=== PATIENT | female | born 1970 | race Two or more races ===

== ENCOUNTER 2018-02-23 15:51 | Emergency (ER) | payer MEDICAID ==
[~2018-02-23] VITALS: Ht 149.9 cm; Wt 63.0 kg
[~2018-02-23 15:51] MED LIST: AMLODIPINE BES2.5 MG ORAL; CIPROFLOXACIN500 M2 ORAL; IBUPROFEN600 MG ORAL; NAPROSYN500 M1 ORAL; NORCO 5-325 TA1 EACH ORAL
[2018-02-23] MEDS ORDERED: HYDROcodone/Acetamin 7.5/325 tab ORAL ONE (16:15)
--- NOTE | 2018-02-23 16:34 | Diagnostic Imaging Report ---
Indication: Foot pain Technique: 3 views right foot Comparison: none Findings: There is mild hallux valgus and metatarsus adductus. No acute fractures. No dislocations. Joint spaces are preserved. There are small plantar and calcaneal spurs Impression: Findings as noted. No acute process
--- NOTE | 2018-02-23 16:50 | Emergency Room Report ---
History of Present Illness General Chief Complaint: Lower Extremity Injury Source: Patient Present Illness HPI 47-year-old female presents to the emergency department complaining of 8 out of 10 in severity right great toe pain 3 days. Patient reports that 3 days ago she stubbed her toe on a door, and she has had pain ever since. Patient thought her pain would subside however it hasn't she has moderate tenderness to the distal aspect of the toe. She also reports that she has pain with movement of the right great toe. Pain is exacerbated upon walking or standing. Denies numbness tingling or loss of sensation or gross motor movements of the extremities, incontinence of bowel or bladder. Denies CP, Palpitations, LOC, AMS , dizziness, Changes in Vision, Sensation, paresthesias, or a sudden severe headache. Allergies: Coded Allergies: No Known Allergies (Unverified , 04/02/15) Patient History Past Medical History: see triage record Past Surgical History: none Pertinent Family History: none Now: No Reviewed Nursing Documentation: PMH: Agreed; PSxH: Agreed Nursing Documentation-PMH Past Medical History: No History, Except For Hx Hypertension: Yes Review of Systems All Other Systems: negative except mentioned in HPI Physical Exam Vital Signs Date Time Temp Pulse Resp B/P (MAP) Pulse Ox O2 Delivery O2 Flow Rate FiO2 02/23/18 15:53 98.3 69 18 150/95 95 Room Air 98.2 Sp02 EP Interpretation: reviewed, normal General Appearance: no apparent distress, alert, GCS 15, non-toxic Head: normocephalic, atraumatic Eyes: bilateral eye normal inspection, bilateral eye PERRL ENT: hearing grossly normal, normal voice Neck: full range of motion Respiratory: lungs clear, normal breath sounds, speaking full sentences Cardiovascular #1: regular rate, rhythm, normal capillary refill Musculoskeletal: back normal, gait/station normal, normal range of motion, tender - distal Right great toe, some ttp to the toenail, no obvious avulsion, no swelling or bruising. Neurologic: alert, oriented x3, responsive, motor strength/tone normal, sensory intact, normal gait, speech normal, grossly normal Psychiatric: judgement/insight normal Skin: normal color, no rash, warm/dry, well hydrated Medical Decision Making PA Attestation Dr. Dooley is my supervising Physician whom patient management has been discussed with. Diagnostic Impression: Primary Impression: Toe contusion Qualified Codes: S90.111A - Contusion of right great toe without damage to nail, initial encounter Additional Impressions: Foot pain, right Toe sprain Qualified Codes: S93.509A - Unspecified sprain of unspecified toe(s), initial encounter ER Course 47-year-old female presents to the emergency department complaining of 8 out of 10 in severity right great toe pain 3 days. Patient reports that 3 days ago she stubbed her toe on a door, and she has had pain ever since. Patient thought her pain would subside however it hasn't she has moderate tenderness to the distal aspect of the toe. She also reports that she has pain with movement of the right great toe. Pain is exacerbated upon walking or standing. Denies numbness tingling or loss of sensation or gross motor movements of the extremities, incontinence of bowel or bladder. Denies CP, Palpitations, LOC, AMS , dizziness, Changes in Vision, Sensation, paresthesias, or a sudden severe headache. Ddx considered but are not limited to Fracture, dislocation, contusion, Sprain/ Strain/Spasm, Vital signs: are WNL, pt. is afebrile H&PE are most consistent with musculoskeletal injury will perform imaging to r/ o fractures/dislocations. ORDERS: - X-ray right foot 3 views - negative for fx, Dislocation, or significant soft tissue injury, per preliminary read in ED, and signed by GRAHAM Altman , my supervising physician has reviewed, and agrees with my interpretation. ED INTERVENTIONS: - [place] PO - Cast Shoe applied. d/w pt. conservative treatment, and to follow up with a primary care provider. pt given a list of primary care clinics for follow up. d/w pt. to return to the ED with worsening or new symptoms. DISCHARGE: At this time pt. is stable for d/c to home. Will provide printed patient care instructions, and any necessary prescriptions. Care plan and follow up instructions have been discussed with the patient prior to discharge. Other X-Ray Diagnostic Results Other X-Ray Diagnostic Results : X-Ray ordered: Right foot # of Views/Limited Vs Complete: 3 View Indication: Pain EP Interpretation: Yes PA Xray: Interpretation reviewed, by supervising MD, and agrees with findings. Interpretation: no dislocation, no soft tissue swelling, no fractures Impression: No acute disease Electronically Signed by: Helen Altman PA-C Last Vital Signs Date Time Temp Pulse Resp B/P (MAP) Pulse Ox O2 Delivery O2 Flow Rate FiO2 02/23/18 15:53 98.3 69 18 150/95 95 Room Air 98.2 Disposition: HOME, SELF-CARE Condition: Stable Scripts Hydrocodone Bit/Acetaminophen 5-325* (NORCO 5-325*) 1 Each Tablet 1 TAB ORAL Q8HR PRN for For Pain, #6 TAB 0 Refills Prov: Helen Altman 02/23/18 Patient Instructions: Foot Contusion Additional Instructions: Take medications as directed. Follow up with a Primary Care Provider in 3-5 days, even if your symptoms have resolved. --Please review list of primary care clinics, if you do not already have a primary care provider Return sooner to ED if new symptoms occur, or current symptoms become worse. Do not drink alcohol, drive, or operate heavy machinery while taking [place] as this may cause drowsiness. - Please note that this Emergency Department Report was dictated using [employer] technology software, occasionally this can lead to erroneous entry secondary to interpretation by the dictation equipment. Helen Altman Feb 23, 2018 16:50
[2018-02-23] MEDS ORDERED: NORCO 5-325 TA1 EACH ORAL (16:51)
[2018-02-23 17:04] VITALS: BP 150/95
== END 2018-02-23 17:05 | disposition home or self-care (01) ==
LOC: EMR 16:42
DX: S93.501A Unspecified sprain of right great toe, initial encounter (principal); W22.8XXA Striking against or struck by other objects, initial encounter; Y92.9 Unspecified place or not applicable; I10 Essential (primary) hypertension; M20.11 Hallux valgus (acquired), right foot; M77.31 Calcaneal spur, right foot
CPT/HCPCS: 99283

== ENCOUNTER 2018-11-26 21:02 | Emergency (ER) | payer MEDICAID ==
[~2018-11-26] VITALS: Ht 149.9 cm; Wt 61.2 kg
--- NOTE | 2018-11-26 21:15 | NUR ---
ED Nurse Note: pt walked in ED c/o sob started today, pt denies any flu like s/s previously, pt denies any chest pain or fever at this time, pt vss, nsr on cardiac surgeon, AA&ox4, gcs=15, skin warm and dry, resp even and unlabored, airway intact, -n/v/d, ambulates w/ steady gait, at the bedside, will cont monitor.
[2018-11-26] MEDS ORDERED: Ipratropium 0.02% Inh Soln 2.5ml UD HHN ONE (21:30)
[2018-11-26] MEDS ORDERED: Albuterol ud Inhalation HHN ONE (21:30)
[2018-11-26 21:51] LABS: BASOPHILS % (AUTO) 2.1 % (0.0-2.0); EOSINOPHILS % (AUTO) 2.3 % (0.0-3.0); HEMATOCRIT 39.1 % (37.0-47.0); HEMOGLOBIN 13.3 G/DL (12.0-16.0); LYMPHOCYTES % (AUTO) 23.2 % (20.0-45.0); MEAN CORPUSCULAR VOLUME 88 FL (80-99); MONOCYTES % (AUTO) 10.2 % (1.0-10.0); NEUTROPHILS % (AUTO) 62.3 % (45.0-75.0); PLATELET COUNT 278 K/UL (150-450); RED BLOOD COUNT 4.43 M/UL (4.20-5.40); RED CELL DISTRIBUTION WIDTH 11.3 % (11.6-14.8); WHITE BLOOD COUNT 8.6 K/UL (4.8-10.8)
[2018-11-26 22:00] VITALS: BP 154/74
--- NOTE | 2018-11-26 22:00 | NUR ---
ED Nurse Note: pt reports breathing is better with breathing tx, pt vss, o2sat 100% on RA, will cont monitor.
--- NOTE | 2018-11-26 22:01 | Diagnostic Imaging Report ---
EXAM: XR Chest, 1 View CLINICAL HISTORY: SOB TECHNIQUE: Frontal view of the chest. COMPARISON: No relevant prior studies available. FINDINGS: Lungs: Reduced lung volumes. Suggestion of mild bilateral reticulonodular opacities. Pleural space: Unremarkable. No pneumothorax. Heart: Cardiomegaly. Mediastinum: Unremarkable. Bones/joints: No acute fracture. IMPRESSION: Reduced lung volumes. Suggestion of mild bilateral reticulonodular opacities.
[2018-11-26 22:04] LABS: ANION GAP 13 mmol/L (5-15); BLOOD UREA NITROGEN 14 mg/dL (7-18); CALCIUM 9.8 MG/DL (8.5-10.1); CARBON DIOXIDE 21 MMOL/L (21-32); CHLORIDE 105 MMOL/L (98-107); CREATININE 0.9 MG/DL (0.55-1.30); POTASSIUM 3.5 MMOL/L (3.5-5.1); SODIUM 139 MMOL/L (136-145)
[2018-11-26 22:29] LABS: ALANINE AMINOTRANSFERASE 25 U/L (12-78); ALKALINE PHOSPHATASE 55 U/L (46-116); ASPARTATE AMINO TRANSFERASE 26 U/L (15-37); BILIRUBIN,TOTAL 0.4 MG/DL (0.2-1.0); CKMB 1.4 NG/ML (0.0-3.6); CREATINE KINASE 125 U/L (26-308)
[2018-11-26] MEDS ORDERED: AMOXICILLIN500 MG ORAL (22:39)
[2018-11-26] MEDS ORDERED: ALBUTEROL SULF8.5 GM INH (22:39)
--- NOTE | 2018-11-26 22:46 | NUR ---
ED Nurse Note: pt discharge instruction provided w/ prescription, pt education done via discussion and hand out, pt iv d/c and dressing applied, wristband removed, pt vss, ambulatory w/ steady gait, pt advised to follow up with pcp or return to ED if s/s worsen or new s/s develop. pt verbalized understanding and agrees with plan. pt accompanied by her .
[2018-11-26 22:47] VITALS: BP 142/81
--- NOTE | 2018-11-27 01:06 | Emergency Room Report ---
History of Present Illness General Chief Complaint: Dyspnea/Respdistress Source: Patient Present Illness HPI 48-year-old female presents ED for evaluation. Patient complaining of shortness of breath. Started approximately one hour ago while watching TV. Been coughing for the last few days. Cough is denies fevers or chills. Denies chest pain. Denies history of asthma or smoking. Denies recent travel. No other aggravating relieving factors. Denies any other associated symptoms Allergies: Coded Allergies: No Known Allergies (Unverified , 04/02/15) Patient History Past Medical History: HTN Past Surgical History: none Pertinent Family History: none Social History: Denies: smoking, alcohol use, drug use Last Menstrual Period: nov Now: No Immunizations: UTD Reviewed Nursing Documentation: PMH: Agreed; PSxH: Agreed Nursing Documentation-PMH Hx Hypertension: Yes Review of Systems All Other Systems: negative except mentioned in HPI Physical Exam Vital Signs Date Time Temp Pulse Resp B/P (MAP) Pulse Ox O2 Delivery O2 Flow Rate FiO2 11/26/18 21:09 98.2 76 16 176/88 100 Room Air 11/26/18 21:37 21 Sp02 EP Interpretation: reviewed, normal General Appearance: no apparent distress, alert, GCS 15, non-toxic Head: normocephalic, atraumatic Eyes: bilateral eye normal inspection, bilateral eye PERRL ENT: hearing grossly normal, normal pharynx, no angioedema, normal voice Neck: full range of motion, supple/symm/no masses Respiratory: chest non-tender, lungs clear, normal breath sounds, speaking full sentences Cardiovascular #1: regular rate, rhythm, no edema Cardiovascular #2: 2+ carotid (R), 2+ carotid (L), 2+ radial (R), 2+ radial (L) , 2+ dorsalis pedis (R), 2+ dorsalis pedis (L) Gastrointestinal: normal bowel sounds, non tender, soft, non-distended, no guarding, no rebound Rectal: deferred Genitourinary: normal inspection, no CVA tenderness Musculoskeletal: back normal, gait/station normal, normal range of motion, non- tender Neurologic: alert, oriented x3, responsive, motor strength/tone normal, sensory intact, speech normal Psychiatric: judgement/insight normal, memory normal, mood/affect normal, no suicidal/homicidal ideation Reflexes: 3+ bicep (R), 3+ bicep (L), 3+ tricep (R), 3+ tricep (L), 3+ knee (R) , 3+ knee (L) Skin: normal color, no rash, warm/dry, well hydrated Lymphatic: no adenopathy Medical Decision Making Diagnostic Impression: Primary Impression: Pneumonia Qualified Codes: J18.9 - Pneumonia, unspecified organism ER Course Hospital Course 48-year-old female presents to ED complaining of SOB Differential diagnoses include: URI, bronchitis, asthma/COPD, pneumonia Clinical course Patient placed on stretcher. After initial history, physical exam reveals an female in no acute distress. Bilateral TM unremarkable. No pharyngeal erythema. No tonsillar exudates. No lymphadenopathy. lungs clear. I ordered labs, IV fluids, nebs, chest x-ray. Labs reviewed- no leukocytosis noted, hemoglobin/hematocrit stable, electrolytes okay, trop negative, ddimer ok EKG - NSR, no aute ischemic changes interpreted by me Chest x-ray shows no obvious consolidation however there is bilateral opacities suggestive of a infectious process On reassessment patient states she feels better after breathing treatments. Per curb-65 criteria, patient does not require admission. Patient can be safely discharged to home with outpatient therapy. Patient agrees with plan. Patient does not have a PMD. We'll provide referrals Diagnosis - pneumonia Stable and discharged home with prescriptions for amoxicillin, albuterol. Instructed to followup with PMD. Return to ED if symptoms recur or worsen Labs Test 11/26/18 21:33 White Blood Count 8.6 K/UL (4.8-10.8) Red Blood Count 4.43 M/UL (4.20-5.40) Hemoglobin 13.3 G/DL (12.0-16.0) Hematocrit 39.1 % (37.0-47.0) Mean Corpuscular Volume 88 FL (80-99) Mean Corpuscular Hemoglobin 30.0 PG (27.0-31.0) Mean Corpuscular Hemoglobin Concent 34.0 G/DL (32.0-36.0) Red Cell Distribution Width 11.3 % (11.6-14.8) Platelet Count 278 K/UL (150-450) Mean Platelet Volume 6.2 FL (6.5-10.1) Neutrophils (%) (Auto) 62.3 % (45.0-75.0) Lymphocytes (%) (Auto) 23.2 % (20.0-45.0) Monocytes (%) (Auto) 10.2 % (1.0-10.0) Eosinophils (%) (Auto) 2.3 % (0.0-3.0) Basophils (%) (Auto) 2.1 % (0.0-2.0) D-Dimer 0.24 mg/L FEU (0.00-0.49) Sodium Level 139 MMOL/L (136-145) Potassium Level 3.5 MMOL/L (3.5-5.1) Chloride Level 105 MMOL/L (98-107) Carbon Dioxide Level 21 MMOL/L (21-32) Anion Gap 13 mmol/L (5-15) Blood Urea Nitrogen 14 mg/dL (7-18) Creatinine 0.9 MG/DL (0.55-1.30) Estimat Glomerular Filtration Rate > 60 mL/min (>60) Glucose Level 119 MG/DL (74-106) Calcium Level 9.8 MG/DL (8.5-10.1) Total Bilirubin 0.4 MG/DL (0.2-1.0) Aspartate Amino Transf (AST/SGOT) 26 U/L (15-37) Alanine Aminotransferase (ALT/SGPT) 25 U/L (12-78) Alkaline Phosphatase 55 U/L (46-116) Total Creatine Kinase 125 U/L (26-308) Creatine Kinase MB 1.4 NG/ML (0.0-3.6) Creatine Kinase MB Relative Index 1.1 Troponin I 0.001 ng/mL (0.000-0.056) Pro-B-Type Natriuretic Peptide 64 pg/mL (0-125) Total Protein 8.1 G/DL (6.4-8.2) Albumin 4.0 G/DL (3.4-5.0) Globulin 4.1 g/dL Albumin/Globulin Ratio 1.0 (1.0-2.7) EKG Diagnostic Results Rate: normal Rhythm: NSR ST Segments: no acute changes ASA given to the pt in ED: No Rhythm Strip Diag. Results EP Interpretation: yes Rhythm: NSR, no PVC's, no ectopy Chest X-Ray Diagnostic Results Chest X-Ray Diagnostic Results : Chest X-Ray Ordered: Yes # of Views/Limited/Complete: 1 View Indication: Shortness of Breath EP Interpretation: Yes Interpretation: no consolidation, no effusion, no pneumothorax, other - bilateral opacities Impression: Other - ?PNA Electronically Signed by: Electronically signed by Valeriy Nieves MD Last Vital Signs Date Time Temp Pulse Resp B/P (MAP) Pulse Ox O2 Delivery O2 Flow Rate FiO2 11/26/18 22:47 98.0 78 16 142/81 100 Room Air 11/26/18 22:00 21 Status: improved Disposition: HOME, SELF-CARE Condition: Stable Scripts Albuterol Sulfate* (ALBUTEROL SULFATE MDI*) 8.5 Gm Hfa.aer.ad 2 PUFF INH Q6H, #1 EA 0 Refills Prov: Valeriy Nieves MD 11/26/18 Amoxicillin* (AMOXIL*) 500 Mg Capsule 500 MG ORAL THREE TIMES A DAY, #21 CAP Prov: Valeriy Nieves MD 11/26/18 Referrals: NOT CHOSEN IPA/,REFERRING (PCP) [facility] Patient Instructions: Community-Acquired Pneumonia, Adult, [id number] Valeriy Nieves MD Nov 27, 2018 01:05
--- NOTE | 2018-11-27 13:22 | Cardiology Report ---
APPROVED REPORT EKG Measurement Heart [id number] Normal sinus rhythm Nonspecific ST and T wave abnormality Abnormal ECG
== END 2018-11-26 22:48 | disposition home or self-care (01) ==
LOC: EMR 21:25
DX: J18.9 Pneumonia, unspecified organism (principal); I10 Essential (primary) hypertension
CPT/HCPCS: 36415; 71045; 80053; 82550; 82553; 83880; 84484; 85025; 85379; 93005; 94640; 94664; 99284

== ENCOUNTER 2018-12-03 20:22 | Emergency (ER) | payer MEDICAID ==
[~2018-12-03] VITALS: Ht 149.9 cm; Wt 63.5 kg
[~2018-12-03 20:22] MED LIST changes: +ALBUTEROL SULF8.5 GM INH; +AMOXICILLIN500 MG ORAL
[2018-12-03 20:34] VITALS: BP 149/79
--- NOTE | 2018-12-03 20:52 | NUR ---
ER Nurse Note: Pt came from home c/o tightness in throat and chest since this morning. Per pt, her breathing is worse with episodes, hand becomes numb, and needs to catch her breath. Lung sounds clear in all lobes, S1 and S2 heard.Pt O2 at 100% RA. Cap refill <3 seconds with blanching. Pt has full range of motion on all extremities; no numbness noted. Pt stated she was at [facility] last week for pneumonia. [place] [facility] [place].
[2018-12-03] MEDS ORDERED: ATIVAN1 MG ORAL (21:46)
[2018-12-03 21:59] VITALS: BP 140/72
--- NOTE | 2018-12-03 22:00 | NUR ---
ER Nurse Note: Pt seen, treated, medically cleared for discharge by ERMD. Discharge instructions and prescriptons given with repeat verbalization by pt. Instructed pt to follow up with primary care physican within one week. Pt a&ox4, VSS, no signs of distress. ID band removed. All safety measures met; left with all belongings with steady gait via own transporation.
--- NOTE | 2018-12-04 00:30 | Emergency Room Report ---
History of Present Illness General Chief Complaint: Chest Pain Source: Patient, Family Member Present Illness HPI Patient presents with complaints of palpitation and chest pain sensation Patient reports that she was working when the symptoms came on this happened earlier this morning Patient was taken to the [place] [facility], [facility] Patient reports that blood work and observation was made at that facility after prolonged stay the family left as they did not feel like they are getting much answers and presents to this emergency room Daughter reports that the patient has had multiple episodes recently Also reports paramedics have been summoned to their house several times over the past month Patient has a sensation of palpitations followed by chest heaviness and shortness of breath patient also gets numb and tingling Diffusely in her hands and feet She had a similar episode this morning Currently denies any chest pain denies any symptoms denies any recent travel After further discussion daughter reports that patient had recent trauma was seen by physical therapist and had some work done including ultrasounds and other muscle physical therapy and since then as well she has had multiple episodes of symptoms of the when she had today Allergies: Coded Allergies: No Known Allergies (Unverified , 04/02/15) Patient History Past Medical History: see triage record Pertinent Family History: none Last Menstrual Period: [id number] Now: No Reviewed Nursing Documentation: PMH: Agreed; PSxH: Agreed Nursing Documentation-PMH Hx Hypertension: Yes Review of Systems All Other Systems: negative except mentioned in HPI Physical Exam Vital Signs Date Time Temp Pulse Resp B/P (MAP) Pulse Ox O2 Delivery O2 Flow Rate FiO2 12/03/18 20:26 98.2 72 20 98 Room Air 12/03/18 20:34 149/79 Sp02 EP Interpretation: reviewed, normal General Appearance: well appearing, no apparent distress Head: normocephalic, atraumatic Eyes: bilateral eye PERRL, bilateral eye EOMI ENT: hearing grossly normal, normal pharynx, TMs + canals normal, uvula midline Neck: full range of motion, supple, no meningismus, no bony tend Respiratory: lungs clear, normal breath sounds, no rhonchi, no respiratory distress, no retraction, no accessory muscle use Cardiovascular #1: normal peripheral pulses, regular rate, rhythm, no edema, no gallop, no JVD, no murmur Gastrointestinal: normal bowel sounds, non tender, soft, no mass, no organomegaly, non-distended, no guarding, no hernia, no pulsatile mass, no rebound Genitourinary: no CVA tenderness Musculoskeletal: normal inspection Neurologic: oriented x3, responsive, manager of housekeeping III-XII nml as tested, motor strength/ tone normal, sensory intact Psychiatric: mood/affect normal Skin: normal color, no rash, warm/dry, palpation normal Lymphatic: normal inspection, no adenopathy Medical Decision Making Diagnostic Impression: Primary Impression: palpitations ER Course At the time of the examination patient had resolution of her symptoms and therefore was calm and appropriate EKG was obtained and was negative Patient has had fairly extensive workup at this facility and other facility I did not feel that much Would be obtained from repeating this Patient was provided with medication to see if this improves some of the symptoms however I discussed with the family that close follow-up with the referring person to the physical therapist would be beneficial for obtaining follow-up for primary care and other social type care as needed she reports that this is very possible and will follow closely And will return with any changes EKG Diagnostic Results Rate: normal Rhythm: NSR ST Segments: other - Nonspecific ST changes Rhythm Strip Diag. Results EP Interpretation: yes Rate: 60 Rhythm: NSR, no PVC's, no ectopy Last Vital Signs Date Time Temp Pulse Resp B/P (MAP) Pulse Ox O2 Delivery O2 Flow Rate FiO2 12/03/18 21:59 98.1 55 18 140/72 99 Room Air Status: improved Disposition: HOME, SELF-CARE Condition: Improved Scripts Lorazepam* (ATIVAN*) 1 Mg Tablet 1 MG ORAL BID, #5 TAB Prov: Nick Carter DO 12/03/18 Referrals: NOT CHOSEN IPA/MD,REFERRING (PCP) Patient Instructions: Palpitations, [id number] Additional Instructions: Patient is provided with the discharge instructions notified to follow up with primary doctor in the next 2-3 days otherwise return to the er with any worsening symptoms. Please note that this report is being documented using [email or web address] technology. This can lead to erroneous entry secondary to incorrect interpretation by the dictating instrument. Nick Carter DO Dec 04, 2018 00:30
== END 2018-12-03 22:00 | disposition home or self-care (01) ==
LOC: EMR 20:45
DX: R00.2 Palpitations (principal); I10 Essential (primary) hypertension
CPT/HCPCS: 99283

== ENCOUNTER 2019-01-19 07:52 | Emergency (ER) | payer MEDICAID ==
[~2019-01-19] VITALS: Ht 149.9 cm; Wt 61.2 kg
[~2019-01-19 07:52] MED LIST changes: +ATIVAN1 MG ORAL
[2019-01-19] MEDS ORDERED: IBUPROFEN600 MG ORAL (08:14)
[2019-01-19] MEDS ORDERED: AMOXICILLIN500 MG ORAL (08:14)
[2019-01-19 08:18] VITALS: BP 128/82
--- NOTE | 2019-01-19 08:53 | Emergency Room Report ---
History of Present Illness General Chief Complaint: Sore Throat Source: Medical Record Present Illness HPI 48-year-old female presents ED for evaluation. Complaining of sore throat 1 day. Pain is sharp, 7 out of 10, nonradiating. Denies fevers or chills. Denies cough. Denies runny nose congestion. Denies sick contacts recent travel. No other aggravating relieving factors. Denies any other associated symptoms Allergies: Coded Allergies: No Known Allergies (Unverified , 04/02/15) Patient History Past Surgical History: none Pertinent Family History: none Social History: Denies: smoking, alcohol use, drug use Last Menstrual Period: 01/10/19 Now: No Immunizations: UTD Reviewed Nursing Documentation: PMH: Agreed; PSxH: Agreed Nursing Documentation-PMH Past Medical History: No History, Except For Hx Hypertension: Yes Review of Systems All Other Systems: negative except mentioned in HPI Physical Exam Vital Signs Date Time Temp Pulse Resp B/P (MAP) Pulse Ox O2 Delivery O2 Flow Rate FiO2 01/19/19 07:55 98.8 93 18 131/82 97 Room Air Sp02 EP Interpretation: reviewed, normal General Appearance: no apparent distress, alert, GCS 15, non-toxic Head: normocephalic, atraumatic Eyes: bilateral eye normal inspection, bilateral eye PERRL ENT: hearing grossly normal, no angioedema, normal voice, TMs + canals normal, pharyngeal erythema Neck: full range of motion, supple/symm/no masses Respiratory: chest non-tender, lungs clear, normal breath sounds, speaking full sentences Cardiovascular #1: regular rate, rhythm, no edema Cardiovascular #2: 2+ carotid (R), 2+ carotid (L), 2+ radial (R), 2+ radial (L) , 2+ dorsalis pedis (R), 2+ dorsalis pedis (L) Gastrointestinal: normal bowel sounds, non tender, soft, non-distended, no guarding, no rebound Rectal: deferred Genitourinary: normal inspection, no CVA tenderness Musculoskeletal: back normal, gait/station normal, normal range of motion, non- tender Neurologic: alert, oriented x3, responsive, motor strength/tone normal, sensory intact, speech normal Psychiatric: judgement/insight normal, memory normal, mood/affect normal, no suicidal/homicidal ideation Reflexes: 3+ bicep (R), 3+ bicep (L), 3+ tricep (R), 3+ tricep (L), 3+ knee (R) , 3+ knee (L) Skin: normal color, no rash, warm/dry, well hydrated Lymphatic: adenopathy Medical Decision Making Diagnostic Impression: Primary Impression: Pharyngitis Qualified Codes: J02.9 - Acute pharyngitis, unspecified ER Course Hospital Course 48-year-old male presents to ED complaining of sore throat Differential diagnoses include: URI, pharyngitis, otitis media Clinical course Patient placed on stretcher. After initial history, physical exam reveals a female in no acute distress. Bilateral TM unremarkable. There is pharyngeal erythema w/o tonsillar exudates. Noted lymphadenopathy. Consideration for pharyngitis. Patient nontoxic, afebrile. Safe for discharge or close outpatient follow-up. We'll prescribe antibiotics. States she has a PMD Diagnosis - pharyngitis Stable and discharged home with prescriptions for Motrin, amoxicillin. Instructed to followup with PMD. return to ED if symptoms recur or worsen Last Vital Signs Date Time Temp Pulse Resp B/P (MAP) Pulse Ox O2 Delivery O2 Flow Rate FiO2 01/19/19 08:18 98.8 89 18 128/82 97 Room Air Status: improved Disposition: HOME, SELF-CARE Condition: Stable Scripts Ibuprofen* (MOTRIN*) 600 Mg Tablet 600 MG ORAL Q8H PRN for For Pain, #30 TAB 0 Refills Prov: Valeriy Nieves MD 01/19/19 Amoxicillin* (AMOXIL*) 500 Mg Capsule 500 MG ORAL THREE TIMES A DAY, #21 CAP Prov: Valeriy Nieves MD 01/19/19 Referrals: NOT CHOSEN IPA/,REFERRING (PCP) Patient Instructions: Pharyngitis, [id number] Valeriy Nieves MD Jan 19, 2019 08:53
== END 2019-01-19 08:24 | disposition home or self-care (01) ==
LOC: EMR 08:12
DX: J02.9 Acute pharyngitis, unspecified (principal); I10 Essential (primary) hypertension
CPT/HCPCS: 99282